=== PATIENT | male | born 1940 | race Caucasian/White ===

== ENCOUNTER 2020-05-31 16:16 | Emergency (ER) | payer OTHER, MEDICARE ==
--- NOTE | 2020-05-31 16:39 | EDM.PDOC ---
ED HPI GENERAL MEDICAL PROBLEM - General Chief Complaint: Back Pain or Injury Stated Complaint: [facility] Time Seen by Provider: 05/31/20 16:22 Source of Information: Reports: Patient, EMS History Limitations: Reports: No Limitations - History of Present Illness INITIAL COMMENTS - FREE TEXT/NARRATIVE: The patient presents by [facility] for a fall. He was up on a 7 foot ladder picking apples. The ladder fell over and he hit the ground. He does not think he hit his head but he was dazed. He has no headache, neck pain, chest pain, abdominal pain, nausea or vomiting. He does have pain to his left low back. He has no arm or leg pain. He has no numbness, weakness, bowel or bladder problems. Onset: Sudden Duration: Minutes: Location: Reports: Back Quality: Reports: Sharp Severity: Moderate Improves with: Reports: Immobilization Worsens with: Reports: Heat Therapy Context: Reports: Trauma (Fell off of a 7 ft ladder) Associated Symptoms: Reports: No Other Symptoms Lower Back Pain Score (Numeric/FACES): 8 - Related Data Allergies Allergy/AdvReac Type Severity Reaction Status Date / Time No Known Allergies Allergy Verified 05/31/20 16:26 Past Medical History HEENT History: Reports: Impaired Vision Social & Family History - Tobacco Use Smoking Status *Q: Never Smoker ED ROS GENERAL - Review of Systems Review Of Systems: See Below Constitutional: Reports: No Symptoms HEENT: Reports: No Symptoms Respiratory: Reports: No Symptoms Cardiovascular: Reports: No Symptoms Endocrine: Reports: No Symptoms GI/Abdominal: Reports: No Symptoms : Reports: No Symptoms Musculoskeletal: Reports: Back Pain Neurological: Denies: Numbness, Weakness ED EXAM,LOWER BACK PAIN/INJURY - Physical Exam Exam: See Below Exam Limited By: No Limitations General Appearance: Alert, No Apparent Distress Ears: Normal External Exam Nose: Normal Inspection Head: Atraumatic, Normocephalic Neck: Normal Inspection Respiratory/Chest: No Respiratory Distress, Lungs Clear, Normal Breath Sounds Cardiovascular: Regular Rate, Rhythm, No Edema, No Murmur GI/Abdominal: Soft, Non-Tender, No Organomegaly, No Mass Back Exam: Other (Pain upon palpation to the left lower back) Extremities: Normal Inspection, Non-Tender Neurological: Alert, No Motor/Sensory Deficits, Oriented x 3 Course - Vital Signs Last Recorded V/S: Last Vital Signs Temp 98.1 F 05/31/20 16:23 Pulse 84 05/31/20 16:23 Resp 16 05/31/20 16:23 BP 144/98 H 05/31/20 16:23 Pulse Ox 98 05/31/20 16:23 - Orders/Labs/Meds Orders: Active Orders 24 hr Category Date Time Status Peripheral IV Care [RC] . DIRECTED Care 05/31/20 16:27 Active Sodium Chloride 0.9% [Saline Flush] Med 05/31/20 16:27 Active 10 ml FLUSH ASDIRECTED PRN Peripheral IV Insertion Adult [OM.PC] Routine Oth 05/31/20 16:27 Ordered Medication Orders Sodium Chloride (Saline Flush) 10 ml FLUSH ASDIRECTED PRN PRN Reason: Keep Vein Open Last Admin: 05/31/20 18:44 Dose: 10 ml Documented by: Admin: 05/31/20 16:40 Dose: 10 ml Documented by: CARMINA Meds: Medications Generic Name Dose Route Start Last Admin Trade Name Freq PRN Reason Stop Dose Admin Sodium Chloride 10 ml 05/31/20 16:27 05/31/20 18:44 Saline Flush FLUSH 10 ml ASDIRECTED PRN Administration Keep Vein Open Discontinued Medications Generic Name Dose Route Start Last Admin Trade Name Freq PRN Reason Stop Dose Admin Hydromorphone HCl 0.25 mg 05/31/20 18:32 05/31/20 18:44 Dilaudid IVPUSH 05/31/20 18:33 0.25 mg ONETIME ONE Administration - Re-Assessments/Exams Free Text/Narrative Re-Assessment/Exam: 05/31/20 16:[address] of his head and lumbar spine. 05/31/20 18:[address] of his head shows nothing acute. The CT of his lumbar spine shows vertebral body fracture of L1 with anterior wedging of L1 which appears acute. Fracture is noted at the base of the transverse process of L1 which extends to the apophyseal joint on the left side. Additional fracture is noted through the right lamina of L1. Fracture is also noted at the base of the spinous process of L1. Mild compression fracture involving the superior L2 vertebral body. Posterior elements of L2 are felt to be intact. No additional fracture. Degenerative change. Osteopenia. I called Billy in [place] and I am waiting to hear back. 05/31/20 18:20 Dr Hill the neurosurgeon recommended the patient be sent to [facility]. They may do an MRI and get him in the right kind of brace. We do not have any braces here. Departure - Departure Time of Disposition: 19:05 Disposition: DC/Tfer to Acute Hospital 02 Condition: Good Clinical Impression: Fall Qualifiers: Encounter type: initial encounter Qualified Code(s): W19.XXXA - Unspecified f all, initial encounter L1 vertebral fracture Qualifiers: Encounter type: initial encounter Fracture type: closed Fracture morphology: other fracture Qualified Code(s): S32.018A - Other fracture of first lumbar vertebra, initial encounter for closed fracture L2 vertebral fracture Qualifiers: Encounter type: initial encounter Fracture type: closed Fracture morphology: ot her fracture Qualified Code(s): S32.028A - Other fracture of second lumbar vertebra, initial encounter for closed fracture - Discharge Information Referrals: Manuel Sales MD [Primary Care Provider] - Forms: ED Department Discharge Sepsis Event Note (ED) - Evaluation Sepsis Screening Result: No Definite Risk - Focused Exam Vital Signs: Vital Signs Temp Pulse Resp BP Pulse Ox 05/31/20 16:23 98.1 F 84 16 144/98 H 98 - My Orders Last 24 Hours: My Active Orders 05/31/20 16:27 Peripheral IV Care [RC] . DIRECTED Sodium Chloride 0.9% [Saline Flush] 10 ml FLUSH ASDIRECTED PRN Peripheral IV Insertion Adult [OM.PC] Routine - Assessment/Plan Last 24 Hours: My Active Orders 05/31/20 16:27 Peripheral IV Care [RC] . DIRECTED Sodium Chloride 0.9% [Saline Flush] 10 ml FLUSH ASDIRECTED PRN Peripheral IV Insertion Adult [OM.PC] Routine
[2020-05-31] MEDS: Sodium Chloride 0.9% 10 ML Syringe FLUSH PRN ×2 (16:40→18:44)
--- NOTE | 2020-05-31 17:36 | CT ---
Head CT Technique: Multiple axial sections through the brain were obtained. Intravenous contrast was not utilized. Comparison: Prior head CT exam of 10/18/11. Findings: Ventricles along with basal cisterns and sulci over the convexities are within normal limits for the patient's age. No abnormal parenchymal densities are seen. No evidence of intracranial hemorrhage. No midline shift or mass-effect is seen. Bone window settings were reviewed. No acute calvarial finding is seen. Visualized paranasal sinuses and mastoid sinuses are clear. Impression: 1. Nothing acute is appreciated on noncontrast head CT exam. Diagnostic code #1 This report was dictated in MDT
--- NOTE | 2020-05-31 17:37 | CT ---
CT lumbar spine Technique: Multiple axial sections were obtained from the bottom of T11 inferiorly through the L5-S1 discs. Reconstructed coronal and sagittal images were reviewed. Comparison: No prior lumbar spine imaging is available. Findings: Moderate compression with anterior wedging is noted of L1 which appears acute. Fracture is noted at the base of the transverse process of L1 which extends to the apophyseal joint on the left side. Additional fracture is noted through the right lamina of L1. Fracture is also noted at the base of the spinous process of L1. Mild compression deformity within the superior aspect of L2 is seen which appears acute. No extension of fracture into the posterior elements is seen. No additional fractures are appreciated. Diffuse circumferential disc bulging is present within the lumbar spine. Scattered anterior endplate osteophytes are seen. Degenerative apophyseal change is noted within the lower apophyseal joints. Osteopenia is present. Impression: 1. Vertebral body fracture of L1 with anterior wedging which is acute. 3 separate posterior fractures are seen as described above. I believe that this is an unstable fracture. 2. Mild compression fracture involving the superior L2 vertebral body. Posterior elements of L2 are felt to be intact. 3. No additional fracture. Degenerative change. Osteopenia. Diagnostic code #5 This report was dictated in MDT
[2020-05-31] MEDS ORDERED: HYDROmorphone 0.5 MG/0.5 ML Syringe IVPUSH ONE (18:32)
== END 2020-05-31 19:33 ==
LOC: JD.ED 16:16
DX: S32.019A Unspecified fracture of first lumbar vertebra, initial encounter for closed fracture (principal); S32.029A Unspecified fracture of second lumbar vertebra, initial encounter for closed fracture; W11.XXXA Fall on and from ladder, initial encounter
CPT/HCPCS: 70450; 72131; 96374; 99285; J1170; 99284

== ENCOUNTER 2023-10-11 18:48 | Emergency (ER) | payer MEDICARE, OTHER ==
[2023-10-11 19:55] LABS: BASOPHILS ABSOLUTE AUTO 0.1 K/mm3 (0.0-0.2); BASOPHILS PERCENT AUTO 0.8 % (0.0-1.0); EOSINOPHILS ABSOLUTE AUTO 0.1 K/mm3 (0.0-0.4); EOSINOPHILS PERCENT AUTO 1.7 % (0.0-6.0); HEMATOCRIT 41.1 % (42.0-52.0); HEMOGLOBIN 13.7 gm/dl (14.0-18.0); IMMATURE GRAN ABSOLUTE AUTO 0.03 K/mm3 (0.00-0.05); IMMATURE GRAN PERCENT AUTO 0.4 % (0.0-0.4); LYMPHOCYTES ABSOLUTE AUTO 2.9 K/mm3 (1.0-4.8); LYMPHOCYTES PERCENT AUTO 33.9 % (24.0-44.0); MEAN CORPUSCULAR HEMOGLOBIN 30.7 pg (28.0-32.0); MEAN CORPUSCULAR HGB CONC 33.3 g/dl (32.0-36.0); MEAN CORPUSCULAR VOLUME 92.2 fl (83.0-99.0); MEAN PLATELET VOLUME 9.5 fl (9.4-12.4); MONOCYTES ABSOLUTE AUTO 0.5 K/mm3 (0.0-0.8); MONOCYTES PERCENT AUTO 6.2 % (0.0-8.0); NEUTROPHILS ABSOLUTE AUTO 4.8 K/mm3 (1.8-7.7); PLATELET COUNT,PLT 166 K/mm3 (150-400); RED BLOOD CELL COUNT 4.46 M/mm3 (4.52-5.90); WHITE BLOOD CELL COUNT,WBC 8.44 K/mm3 (3.9-11.3)
[2023-10-11 20:18] LABS: A/G RATIO 1.2 (1-2); ALBUMIN 3.5 g/dl (3.4-5.0); ANION GAP 9.2 (5-15); BILIRUBIN TOTAL 0.4 mg/dL (0.2-1.0); BUN/CREATININE RATIO 14.7 (14-18); CALCIUM 8.5 mg/dL (8.5-10.1); CREATININE 1.7 mg/dL (0.7-1.3); EST CRCL DRUG DOSING (CG) 29.7 mL/min; POTASSIUM,K 4.2 mEq/L (3.5-5.1); PROTEIN TOTAL,TP 6.5 g/dl (6.4-8.2)
== END 2023-10-11 20:38 | disposition home or self-care (01) ==
LOC: JD.ED 18:48
DX: N40.0 Benign prostatic hyperplasia without lower urinary tract symptoms (principal)
CPT/HCPCS: 36415; 80053; 85025; 99283; G0103; 99282

== ENCOUNTER 2025-04-10 20:08 | Emergency (ER) | payer MEDICARE, OTHER ==
[2025-04-10 20:27] LABS: BASOPHILS PERCENT AUTO 0.4 % (0.0-1.0); EOSINOPHILS ABSOLUTE AUTO 0.1 K/mm3 (0.0-0.4); EOSINOPHILS PERCENT AUTO 1.2 % (0.0-6.0); HEMATOCRIT 42.5 % (42.0-52.0); HEMOGLOBIN 14.1 gm/dl (14.0-18.0); IMMATURE GRAN ABSOLUTE AUTO 0.03 K/mm3 (0.00-0.05); IMMATURE GRAN PERCENT AUTO 0.3 % (0.0-0.4); LYMPHOCYTES ABSOLUTE AUTO 2.9 K/mm3 (1.0-4.8); LYMPHOCYTES PERCENT AUTO 28.8 % (24.0-44.0); MEAN CORPUSCULAR HEMOGLOBIN 29.8 pg (28.0-32.0); MEAN CORPUSCULAR HGB CONC 33.2 g/dl (32.0-36.0); MEAN CORPUSCULAR VOLUME 89.9 fl (83.0-99.0); MEAN PLATELET VOLUME 9.8 fl (9.4-12.4); MONOCYTES ABSOLUTE AUTO 0.6 K/mm3 (0.0-0.8); MONOCYTES PERCENT AUTO 5.7 % (0.0-8.0); NEUTROPHILS ABSOLUTE AUTO 6.5 K/mm3 (1.8-7.7); NEUTROPHILS PERCENT AUTO 63.6 % (41.0-71.0); PLATELET COUNT,PLT 163 K/mm3 (150-400); RED BLOOD CELL COUNT 4.73 M/mm3 (4.52-5.90); WHITE BLOOD CELL COUNT,WBC 10.16 K/mm3 (3.9-11.3)
[2025-04-10] MEDS: Alum Hydrox/Mag Hydrox/Simeth 30 ML, Lidocaine 2% 15 ML PO ONE (20:39)
[2025-04-10 20:48] LABS: INR 1.06; PROTHROMBIN TIME 11.2 SECONDS (9.7-12.0)
[2025-04-10 20:49] LABS: PTT,PARTIAL THROMBOPLSTIN TIME 25.1 SECONDS (21.7-31.4)
[2025-04-10 21:01] LABS: A/G RATIO 1.2 (1-2); ALBUMIN 3.6 g/dl (3.4-5.0); ANION GAP 10.9 (5-15); BILIRUBIN TOTAL 0.8 mg/dL (0.2-1.0); BUN/CREATININE RATIO 12.5 (14-18); CALCIUM 9.7 mg/dL (8.5-10.1); CREATININE 1.2 mg/dL (0.7-1.3); EST CRCL DRUG DOSING (CG) 41.08 mL/min; MAGNESIUM 1.8 mg/dL (1.8-2.4); POTASSIUM,K 3.9 mEq/L (3.5-5.1); PROTEIN TOTAL,TP 6.5 g/dl (6.4-8.2)
== END 2025-04-10 21:40 | disposition home or self-care (01) ==
LOC: JD.ED 20:08
DX: R07.2 Precordial pain (principal)
CPT/HCPCS: 36415; 71045; 80053; 83735; 83880; 84484; 85025; 85610; 85730; 93005; 99285; A9270; 93010; 99283